=== PATIENT | male | born 1950 | race Caucasian/White ===

== ENCOUNTER 2020-03-22 07:45 | Day surgery (SDC) | payer MEDICARE ==
[2020-03-22] VITALS (7 sets, daily range): BP systolic 119–141; BP diastolic 71–76
[~2020-03-22] VITALS: Ht 165.1 cm; Wt 81.6 kg
[~2020-03-22 07:45] MED LIST: ALFUZOSIN HCL10 MG PO; Atropine Inj 1mg/10ml Syr IVP PRN; CICLOPIROX15 GM TP; DiphenhydrAMINE 50mg/ml Inj IVP PRN; FARXIGA5 MG PO; FOLIC ACID1 MG ORAL; JANUMET 50-1,01 EACH ORAL; LEVOXYL125 MCG ORAL; LOPID600 MG ORAL; LOSARTAN POTASS50 MG ORAL; LR 1000ml 1,000 ML IVLG SCH; Midazolam 2mg/2ml Inj IVP PRN; PRILOSEC OTC20 MG ORAL; PROSCAR5 MG ORAL; Prandin PO; REPATHA SY140 MG/1 M SQ; RINVOQ ER15 MG PO; fentaNYL 100 mcg/2 mL IV PRN
[2020-03-22] MEDS ORDERED: LR 1000ml ONE (09:00)
[2020-03-22] MEDS ORDERED: Lidocaine 1% MPF 10mg/ml 5ml ONE (09:00)
--- NOTE | 2020-03-22 09:14 | Short Stay Surgery H&P ---
History of Present Illness History of Present Illness Chief Complaint Abdominal pains/GERDs and screening colonoscopy with history of colon polyp. WINSOME Frias is a 69 year old male who was admitted on for GERD and abdominal pains/screening colon Patient History Allergies: Uncoded Allergies: statins (Adverse Reaction, Intermediate, "i become a robot", 03/17/20) PAST MEDICAL HISTORY: (1) Hypertension (2) Hyperlipidemia (3) Diverticulosis (4) Diabetes (5) History of shoulder surgery (6) History of cholecystectomy (7) History of spinal surgery (8) Arthritis Medication History Scheduled Alfuzosin* (Uroxatrol*), 10 MG PO DAILY, (Reported) Ciclopirox Olamine* (Loprox*), 15 GM TP DAILY, (Reported) Dapagliflozin Propanediol (Farxiga), 5 MG PO DAILY, (Reported) Evolocumab (Repatha Syringe), 140 MG SQ q14 days, (Reported) Finasteride* (Proscar*), 5 MG ORAL DAILY, (Reported) Folic Acid* (Folic Acid*), 1 MG ORAL DAILY, (Reported) Gemfibrozil* (Lopid*), 600 MG ORAL TWICE A DAY, (Reported) Levothyroxine Sodium* (Levoxyl*), 125 MCG ORAL DAILY, (Reported) Losartan Potassium* (Losartan Potassium*), 100 MG ORAL BID, (Reported) Omeprazole Magnesium (Prilosec Otc), 20 MG ORAL DAILY, (Reported) Sitagliptin Phos/Metformin Hcl (Janumet 50-1,000 Mg Tablet), 1 TAB ORAL TWICE A DAY, (Reported) Upadacitinib (Rinvoq ER), 15 MG PO QOD, (Reported) [Prandin], 2 MG PO QID, (Reported) Review of Systems Cardiovascular: Reports: hypertension Respiratory: Reports: no symptoms Skeletal: Reports: rheumatoid arthritis Gastrointestinal: Reports: gastro esophageal reflux disease Genitourinary: Reports: BPH Neurologic: Reports: no symptoms Endocrine: Reports: diabetes - type 2 Hematologic: Reports: no symptoms Physical Exam Vital Signs Last Vital Signs Date Time Temp Pulse Resp B/P (MAP) Pulse Ox O2 Delivery O2 Flow Rate FiO2 03/22/20 08:41 Room Air 03/22/20 08:17 97.5 60 20 138/75 100 Skin: normal HENT: normal Heart: normal Lungs: normal Abdomen: abnormal Extremities: normal Plan Plan of Care Upper and lower GI endoscopy with obtaining biopsies Preop Interventions None. Summary of Findings See the reports. Attestation Are the patient's medical conditions optimized for surgery? Attestation Response: yes Roxi Ortega MD Mar 22, 2020 09:14
--- NOTE | 2020-03-22 09:15 | Pre-Procedure Note/Attestation ---
Pre-Procedure Note/Attestation Complete Prior to Procedure Planned Procedure: left Procedure Narrative: Examination of the upepr and the lower GI. tract via endoscopy with obtaining biopsies and possible removal of polyps. Indications for Procedure Pre-Operative Diagnosis: R/O Gastritis/Peptic ulcer- Colon polyps. Attestation I attest that I discussed the nature of the procedure; its benefits; risks and complications; and alternatives (and the risks and benefits of such alternatives), prior to the procedure, with the patient (or the patient's legal representative government relations). I attest that, if there was a reasonable possibility of needing a blood tr ansfusion, the patient (or the patient's legal representative government relations) was given the [place] [facility] standardized written summary, pursuant to the [employer]u[place] Blood Safety Act ([place] Health and Safety Code # 1645, as amended). I attest that I re-evaluated the patient just prior to the surgery and that there has been no change in the patient's H&P, except as documented below: Roxi Ortega MD Mar 22, 2020 09:15
--- NOTE | 2020-03-22 09:16 | Discharge Instructions ---
Discharge Instructions Discharge Instructions Follow up with: Office follow up after two weeks, make appointment. For Congestive Heart Failure Reminder Report to your physician any weight gain of 5 pounds or more in one week. Roxi Ortega MD Mar 22, 2020 09:16
--- NOTE | 2020-03-22 09:43 | Anethesia Preoperative Eval ---
Anesthesia Pre-op PMH/ROS General Date of Evaluation: Mar 22, 2020 Time of Evaluation: 09:11 Anesthesiologist: nazia ASA Score: ASA 3 Mallampati Score Class I : Soft palate, uvula, fauces, pillars visible Class II: Soft palate, uvula, fauces visible Class III: Soft palate, base of uvula visible Class IV: Only hard plate visible Mallampati Classification: Class II Surgeon: davin Diagnosis: gerd, diverticulosis Surgical Procedure: egd/colonoscopy Anesthesia History: none Social History: smoking - nonsmoker Family History: no anesthesia problems Allergies: Uncoded Allergies: statins (Adverse Reaction, Intermediate, "i become a robot", 03/17/20) Medications: see eMAR Patient NPO?: Yes Past Medical History Cardiovascular: Reports: other - hypercholesterolemia Gastrointestinal/Genitourinary: Reports: GERD, other - hepatitis, diverticulosis, bph Hematology/Immune: Reports: other - covid-19 nd 03/18/2020 Musculoskeletal/Integumentary: Reports: RA, other - back pain Anesthesia Pre-op Phys. Exam Physician Exam Last Vital Signs Date Time Temp Pulse Resp B/P (MAP) Pulse Ox O2 Delivery O2 Flow Rate FiO2 03/22/20 08:41 Room Air 03/22/20 08:17 97.5 60 20 138/75 100 Constitutional: NAD Neurologic: CN 2-12 intact Cardiovascular: RRR Respiratory: CTA Gastrointestinal: S/NT/ND Airway Exam Mallampati Score: Class II MO: limited Neck: short TMD: 2fb ROM: limited Teeth: other - dental implants Anesthesia Pre-op A/P Labs Microbiology Date/Time Source Procedure Growth Status 03/18/20 09:20 Nasopharynx Coronavirus COVID-19 PCR ([facility]) - Final Complete Risk Assessment & Plan Assessment: asa3 Plan: mac Status Change Before Surgery: No Pre-Antibiotics Drug: Lien Stanley MD Mar 22, 2020 09:43
--- NOTE | 2020-03-22 09:53 | Endoscopy Procedure Note ---
Endoscopy Procedure Note General Indication for Procedure: Abdominal pains Procedures Performed: EGD - completely normal upper GI. endoscopy, biopsy was taken per random from gastric body., colonoscopy - Minimal internal hemorrhoids. Minimal diverticulosis of the left colon. Normal terminal ileum in ileoscopy. Specimen: yes Pt Tolerated Procedure Well: Yes Estimated Blood Loss: none Anesthesia Anesthesiologist: Dr. Aly Anesthesia: moderate sedation Medications Medication Given: see anesthesia record Inserted Devices Implant(s) used?: No Quality Quality of Bowel Preparation: Excellent Did scope reach the cecum?: Yes Was there any complications?: No GI Core Measures 50 yrs or older w/o bx or poly: Yes 10yrs. F/U recommended: Yes 18 years or older w/prev. colo: No Roxi Ortega MD Mar 22, 2020 09:53
--- NOTE | 2020-03-22 10:29 | Operative Note - Dictated ---
DATE OF OPERATION: 03/22/2020 PROCEDURE: Esophagogastroduodenoscopy with biopsy. PREOPERATIVE DIAGNOSIS: Abdominal pain, epigastric pain, history of chronic heartburn, GERD. POSTOPERATIVE DIAGNOSIS: Completely normal upper GI endoscopy. Biopsy was taken per random from gastric body. MEDICATION USED: Per Dr. Cabrales, anesthesiologist. INSTRUMENT: GIF Olympus upper GI video endoscope. DESCRIPTION OF PROCEDURE: The patient after arriving an endoscopy unit, was told about risks and benefits of the procedure, which he accepted and signed informed consent. He was then put on the left lateral decubitus position. After adequate IV sedation, the scope was gently passed through the cricopharyngeal area, was lodged into the upper esophagus and was gradually advanced towards gastroesophageal junction. The entire length of esophagus was completely normal. The GE junction also looked normal without any evidence of Wallace's or hiatal hernia. At this time, the scope was advanced into the stomach, gastric cavity was distended with insufflation of air. Gradually, the areas of the fundus and the body and the antrum were examined, which revealed completely normal mucosal finding with no evidence of ulcers, tumors, polyps, bleeding sites, etc. A retroflexion maneuver was also applied, which did not reveal any abnormality at the GE junction. At this time, one random biopsy from gastric body was obtained and subsequently scope was passed through the pylorus. First and second portion of duodenum were also found to be completely normal without any pathology noted. At this point, the scope was pulled out and the procedure was terminated. The patient tolerated the procedure well. Said Maggie Ortega DR: JEMMA JOB#: [id number] CC:
--- NOTE | 2020-03-22 10:29 | Procedure Note ---
DATE OF PROCEDURE: 03/22/2020 SURGEON: Roxi Ortega MD. PROCEDURE: Total colonoscopy with terminal ileoscopy. PREOPERATIVE DIAGNOSES: History of abdominal pain, rule out colitis, ileitis, colon polyps etc. with a history of colon polyps. POSTOPERATIVE DIAGNOSES: 1. Minimal internal hemorrhoids and mild diverticulosis of the left colon, otherwise normal total colonoscopy. 2. Normal terminal ileum in ileoscopy. MEDICATION USED: Per Dr. Cabrales, anesthesiologist. INSTRUMENT: GIF Olympus video colonoscope. DESCRIPTION OF PROCEDURE: The patient after arriving endoscopy unit, was told about risks and benefits of the procedure which he accepted and signed informed consent. He was then put on the left lateral decubitus position. After adequate IV sedation, the scope was gently passed through the anal area which revealed evidence of minimal internal hemorrhoids which were not friable. The rest of the rectum looked completely normal. At this time, the scope was gradually passed through the rectosigmoid area and there was minimal diverticular openings in the distal descending colon, which was not significant. The rest of the descending colon was completely normal without any pathology. Subsequently, the scope was transferred into the transverse colon and all the way to the hepatic flexure and then subsequently was guided into the right colon going up to the cecal area. All these areas remained completely normal without any pathological findings. After reaching to the base of the cecum and visualizing the appendiceal opening, at this time, the scope was passed through the terminal ileum, which required some significant amount of time, but was successful. Entering the terminal ileum approximately 15 cm revealed no abnormality in the terminal ileum mucosa. No ulcers, inflammatory process, stricture etc. was noted. No evidence of ileitis noted. At this time, the scope was gradually pulled out. Within 6 to 7 minutes withdrawal during which time, there was no other pathology found. The colon cleanup was excellent and the patient tolerated the procedure well and left the endoscopy room in a good condition. Roxi Ortega M.D. DR: Elizabeth JOB#: [id number] CC:
== END 2020-03-22 11:00 | disposition home or self-care (01) ==
LOC: GAS 07:45
DX: K57.90 Diverticulosis of intestine, part unspecified, without perforation or abscess without bleeding (principal); K64.8 Other hemorrhoids; I10 Essential (primary) hypertension; E78.5 Hyperlipidemia, unspecified; Z90.49 Acquired absence of other specified parts of digestive tract; M19.90 Unspecified osteoarthritis, unspecified site; Z79.899 Other long term (current) drug therapy; M06.9 Rheumatoid arthritis, unspecified; K21.9 Gastro-esophageal reflux disease without esophagitis; E11.9 Type 2 diabetes mellitus without complications; E78.00 Pure hypercholesterolemia, unspecified; Z86.16 Personal history of COVID-19
CPT/HCPCS: 43239; 45378; 94003; J2704; J7120; U0004; 94150